=== PATIENT | male | born 1995 | race African-American/Black ===

== ENCOUNTER 2017-07-28 21:46 | Emergency (ER) | payer BC ==
[2017-07-28] MEDS ORDERED: IBUPROFEN 600 MG TABLET ONE (23:58)
== END 2017-07-29 00:35 | disposition home or self-care (01) ==
LOC: EDH 21:46
DX: S52.532A Colles' fracture of left radius, initial encounter for closed fracture (principal); Z72.0 Tobacco use; V89.2XXA Person injured in unspecified motor-vehicle accident, traffic, initial encounter; Y93.89 Activity, other specified; Y92.89 Other specified places as the place of occurrence of the external cause; Y99.8 Other external cause status
CPT/HCPCS: 29125; 73110